=== PATIENT | female | born 1965 | race Caucasian/White ===

== ENCOUNTER 2018-10-24 13:30 | Emergency (ER) | payer MEDICAID ==
[~2018-10-24] VITALS: Ht 165.1 cm; Wt 84.4 kg
[~2018-10-24 13:30] MED LIST: COL100 PO; FLA500 PO; FLEXERIL10 MG PO; LAC PO; LEVAQUIN750 MG PO; LISINOPRIL2.5 MG PO; MYL80 CH; NOR10T PO; ZESTRIL5 MG PO
[2018-10-24 13:54] VITALS: Ht 165.1 cm; Wt 84.4 kg
[2018-10-24 15:32] LABS: BASOPHIL % 0.4 % (0-2); PLATELET COUNT 305 x10^3mcL (130-400)
[2018-10-24 15:35] LABS: RED CELL DISTRIBUTION WIDTH 14.8 % (11.5-14.5)
[2018-10-24 15:41] VITALS: BP 167/84
[2018-10-24 15:47] LABS: CALCIUM 9.3 mg/dL (8.5-10.1); CARBON DIOXIDE 26.3 mmol/L (21-32); CHLORIDE SERUM 101 mmol/L (98-107); CREATININE SERUM 0.8 mg/dL (0.6-1.0); GFR1 > 60 mL/min; GLUCOSE SERUM 103 mg/dL (74-106); SODIUM SERUM 137 mmol/L (136-145)
[2018-10-24 15:56] LABS: ALBUMIN 3.9 g/dL (3.4-5.0); ALKALINE PHOSPHATASE 115 U/L (46-116); ALT/SGPT 54 U/L (14-59); AST/SGOT 41 U/L (15-37); BILIRUBIN TOTAL 0.21 mg/dL (0.20-1.00); CHOLESTEROL 240 mg/dL (<200); CHOLESTEROL/HDL RATIO 1.9; HDL CHOLESTEROL 126 mg/dL (40-60); LIPASE 165 IU/L (73-393); TRIGLYCERIDES 85 mg/dL (<150)
[2018-10-24 16:02] LABS: FREE T4 0.89 ng/dL (0.76-1.46); FREE THYROXINE INDEX 2.1 ug/dL (1.4-4.5); T4(THYROXINE) 5.5 ug/dL (4.7-13.3)
[2018-10-24 16:31] LABS: T3 TOTAL 0.78 ng/mL
[2018-10-24 17:13] LABS: microscopic required? YES; urine erythrocyte NEGATIVE (NEGATIVE)
== END 2018-10-24 17:22 | disposition home or self-care (01) ==
LOC: ED 13:30
PROVIDERS: Specialist
DX: R07.89 Other chest pain (principal); I10 Essential (primary) hypertension; Z90.710 Acquired absence of both cervix and uterus; Z98.890 Other specified postprocedural states
CPT/HCPCS: 83880; 84439; J1885; J7030; Q0092

== ENCOUNTER 2020-05-16 17:23 | Emergency (ER) | payer SELFPAY ==
[~2020-05-16] VITALS: Ht 157.5 cm; Wt 85.3 kg
[2020-05-16 17:28] VITALS: Ht 157.5 cm; Wt 85.3 kg
[2020-05-16 19:32] VITALS: BP 127/66
== END 2020-05-16 19:32 | disposition home or self-care (01) ==
LOC: ED 17:23
DX: S52.572A Other intraarticular fracture of lower end of left radius, initial encounter for closed fracture (principal); S52.612A Displaced fracture of left ulna styloid process, initial encounter for closed fracture; I10 Essential (primary) hypertension; Z98.890 Other specified postprocedural states; Z90.710 Acquired absence of both cervix and uterus; W18.39XA Other fall on same level, initial encounter; Y93.89 Activity, other specified; Y92.89 Other specified places as the place of occurrence of the external cause; Y99.8 Other external cause status
CPT/HCPCS: Q0092; Q0162